=== PATIENT | male | born 1980 | race Two or more races ===

== ENCOUNTER → 2023-11-23 | Emergency (ER) | payer SELFPAY ==
[~2023-11-23] VITALS: Ht 160 cm; Wt 90.0 kg
[~2023-11-23] MED LIST: HYDROcodone-ACET 5/325MG TAB PO ONE; KETOROLAC TROMETH 60MG/2ML VIAL IM ONE; LIDOCAINE 1% HCL (LOCAL ANESTH.) INJ 20ML MDV ID ONE; TETANUS-DIPTH-ACEL PERTUSSIS 0.5ML SYR Tdap IM ONE
[2023-11-23 22:39] VITALS: BP 137/90; PULSE 130; RESP 22; O2SAT 96
== END | disposition left against medical advice (07) ==
LOC: EDBD 22:10 → ER 22:10
DX: M25.522 Pain in left elbow (principal); Z53.21 Procedure and treatment not carried out due to patient leaving prior to being seen by health care provider; V89.2XXA Person injured in unspecified motor-vehicle accident, traffic, initial encounter; Y93.89 Activity, other specified; Y92.89 Other specified places as the place of occurrence of the external cause; Y99.8 Other external cause status